=== PATIENT | female | born 1995 | race African-American/Black ===

== ENCOUNTER 2021-01-11 07:23 | Emergency (ER) | payer MEDICAID, SELFPAY ==
[2021-01-11 08:35] LABS: Bilirubin Neg (Negative); Blood, Urine 25 (Negative); Clarity Clear (Clear); Glucose, Urine (Dipstick) Normal (Negative); Ketone, Urine Negative (Negative); Leukocyte 500 (Negative); Nitrite Negative (Negative); Protein, Urine (Dipstick) 15 mg/dl (Neg-Trace); Specific Gravity, Urine 1.015 (1.002-1.036)
[2021-01-11 08:59] LABS: Bacteria/HPF 2+ HPF (None Seen)
[2021-01-11 09:07] LABS: #Eosinphils 0.1 10x3/uL (0.0-0.5); #Monocytes 0.5 10x3/uL (0.0-1.1); %Basophils 0.4 % (0.0-2.0); %Lymphocytes 19.6 % (18.0-47.0); %Monocytes 6.3 % (0.0-10.0); %Neutrophils 72.2 % (40.0-75.0); Hemoglobin 12.6 g/dL (12.0-15.5); Mean Corpuscular HGB CONC 36.1 g/dL (32.0-36.0); Mean Corpuscular Hemoglobin 28.7 pg (27.0-33.0); Mean Corpuscular Volume 79.5 fl (81.6-98.3); Mean Platelet Volume 9.4 fl (7.4-10.4); Platelet Count 381 10x3/uL (150-450); RBC Distribution Width 15.7 % (11.5-14.5); Red Blood Cell (RBC) Count 4.39 10x6/uL (3.90-5.03); White Blood Cell (WBC) Count 8.3 10x3/uL (3.5-10.5)
== END 2021-01-11 09:55 | disposition home or self-care (01) ==
LOC: CSHERS 07:23
DX: O23.41 Unspecified infection of urinary tract in pregnancy, first trimester (principal); O20.9 Hemorrhage in early pregnancy, unspecified; O99.331 Smoking (tobacco) complicating pregnancy, first trimester; F17.210 Nicotine dependence, cigarettes, uncomplicated; Z3A.10 10 weeks gestation of pregnancy
CPT/HCPCS: 76856; 81003; 81015; 84702; 85025; 86900; 86901

== ENCOUNTER 2021-07-09 07:30 | Inpatient (IN) | payer MEDICAID, OTHER ==
[2021-07-16] MEDS ORDERED: hydrALAZINE 20 MG/ML VIAL SLOW IVP PRN ×3 (01:24→11:15)
[2021-07-16] MEDS ORDERED: Famotidine/PF 20 mg/2ml Vial SLOW IVP PRN (01:24)
[2021-07-16] MEDS ORDERED: Acetaminophen 500 MG TAB PO PRN (01:24)
[2021-07-16] MEDS ORDERED: Ondansetron PF 4 MG/2 ML Vial IVP PRN ×2 (01:24→08:57)
[2021-07-16] MEDS ORDERED: Promethazine HCl 25 MG/ML VIAL IM PRN ×2 (01:24→09:01)
[2021-07-16] MEDS ORDERED: Bicitra 30 ML UDCUP PO PRN (01:24)
[2021-07-16] MEDS ORDERED: CEFAZOLIN 2 GM in Premix Bag 1 BAG IVPB SCH (01:30)
[2021-07-16] MEDS: Lactated Ringer's 1,000 ML IV SCH ×2 (06:15→07:30)
[2021-07-16 06:22] VITALS: BMI 37.5
[2021-07-16 06:37] LABS: Hemoglobin 12.2 g/dL (12.0-15.5); Mean Corpuscular HGB CONC 35.5 g/dL (32.0-36.0); Mean Corpuscular Hemoglobin 28.7 pg (27.0-33.0); Mean Corpuscular Volume 80.9 fl (81.6-98.3); Mean Platelet Volume 10.6 fl (7.4-10.4); Platelet Count 340 10x3/uL (150-450); Red Blood Cell (RBC) Count 4.25 10x6/uL (3.90-5.03); White Blood Cell (WBC) Count 10.3 10x3/uL (3.5-10.5)
[2021-07-16] MEDS ORDERED: Morphine PF 10 MG/10 ML VIAL ONE (07:01)
[2021-07-16] MEDS ORDERED: Ondansetron PF 4 MG/2 ML Vial ONE (07:02)
[2021-07-16] MEDS ORDERED: PHENYLEPHRINE-NS 100 MCG/ML 10 ML SYRINGE ONE (07:02)
[2021-07-16] MEDS ORDERED: Dexamethasone 4 mg/ml Vial ONE (07:02)
[2021-07-16] MEDS ORDERED: Metoclopramide HCl 10 MG/2 ML VIAL ONE (07:02)
[2021-07-16] MEDS ORDERED: Phenylephrine 40 MG/NS 250 ML 250 ML ONE (07:02)
[2021-07-16] MEDS ORDERED: Ketorolac Tromethamine 30 MG/ML VIAL ONE (07:02)
[2021-07-16] MEDS ORDERED: Oxytocin 10 UNITS/ML VIAL ONE (07:02)
[2021-07-16 07:13] LABS: Hep B Surf Ag Non-Reactive S/CO (NonReactive)
[2021-07-16 07:14] LABS: Syphilis Antibody Nonreactive (Nonreactive); Syphilis Antibody Index 0.09 S/CO (<1.00 Non-Reactive)
[2021-07-16 07:22] LABS: HBSAg Index 0.21 S/CO (0-0.99)
[2021-07-16] MEDS ORDERED: CEFAZOLIN 1 GM VIAL ONE (07:23)
[2021-07-16] MEDS ORDERED: diphenhydrAMINE 25 MG CAP PO PRN ×2 (08:57→11:15)
[2021-07-16] MEDS ORDERED: Acetaminophen 325 MG TAB PO PRN ×2 (08:57→11:15)
[2021-07-16] MEDS ORDERED: Lanolin Ointment 7 GM TUBE TOP PRN ×2 (08:57→11:15)
[2021-07-16] MEDS ORDERED: Simethicone Chewable 80 MG TAB PO PRN ×2 (08:57→11:15)
[2021-07-16] MEDS ORDERED: Misoprostol 200 MCG TAB PR PRN ×2 (08:57→11:15)
[2021-07-16] MEDS ORDERED: Boostrix 0.5 ML (Tdap) VIAL IM ONE (08:57)
[2021-07-16] MEDS ORDERED: NS w/ Oxytocin 30 units 500 ML IV SCH ×2 (09:00→11:15)
[2021-07-16] MEDS ORDERED: Ferrous Sulfate 325 MG TAB PO SCH (09:00)
[2021-07-16] MEDS ORDERED: Prenatal Vitamin 1 TAB PO SCH (09:00)
[2021-07-16] MEDS ORDERED: Ondansetron HCl/PF 4 MG/2 ML Vial IVP PRN (09:01)
[2021-07-16] MEDS ORDERED: Meperidine HCl/PF 25 MG/ML VIAL SLOW IVP PRN (09:01)
[2021-07-16] MEDS ORDERED: Naloxone HCl 0.4 mg/ml Vial IVP PRN ×2 (09:01)
[2021-07-16] MEDS ORDERED: Naloxone HCl 0.4 mg/ml Vial IV PRN (09:01)
[2021-07-16] MEDS ORDERED: Fentanyl 100 MCG/2 ML VIAL SLOW IVP PRN (09:01)
[2021-07-16] MEDS ORDERED: Hydrocerin (Eucerin) Cream 120 gm Jar TOP PRN (09:01)
[2021-07-16] MEDS ORDERED: diphenhydrAMINE 50 MG/ML VIAL IVP PRN (09:01)
[2021-07-16] MEDS ORDERED: Promethazine HCl 25 MG SUPP PR PRN (09:01)
[2021-07-16] MEDS ORDERED: Communication Order-Pharmacy FS SCH (09:15)
[2021-07-16] MEDS: Ondansetron PF 4 MG/2 ML Vial IVP PRN ×2 (09:46→17:19)
[2021-07-16 10:45] LABS: HIV (1/2) Antibody/Antigen Non-Reactive (NonReactive); HIV 1/2 INDEX 0.08 S/CO (<1.00)
[2021-07-16] MEDS ORDERED: NS w/ Oxytocin 30 units 500 ML ONE (11:23)
[2021-07-16] MEDS ORDERED: Ketorolac Tromethamine 30 MG/ML VIAL IVP PRN (14:00)
[2021-07-16] MEDS ORDERED: Ibuprofen 800 MG TAB PO SCH (14:00)
[2021-07-16] MEDS: Ferrous Sulfate 325 MG TAB PO SCH (20:13)
[2021-07-16] MEDS: Docusate Calcium (SURFAK) 240 MG CAP PO SCH (20:13)
[2021-07-17] MEDS: Ferrous Sulfate 325 MG TAB PO SCH ×2 (07:13→22:02)
[2021-07-17] MEDS ORDERED: Ibuprofen 800 MG TAB PO SCH ×3 (09:00→22:00)
[2021-07-17] MEDS ORDERED: HYDROcodone/Acetaminophen 5/325 mg Tablet PO PRN (09:03)
[2021-07-17] MEDS: Docusate Calcium (SURFAK) 240 MG CAP PO SCH ×2 (09:08→22:01)
[2021-07-17] MEDS: Prenatal Vitamin 1 TAB PO SCH (09:08)
[2021-07-17] MEDS: HYDROcodone/Acetaminophen 5/325 mg Tablet PO PRN ×3 (09:17→23:46)
[2021-07-17] MEDS: Ibuprofen 800 MG TAB PO SCH ×2 (15:04→22:01)
[2021-07-18] MEDS: Ibuprofen 800 MG TAB PO SCH ×2 (05:04→13:21)
[2021-07-18 07:50] VITALS: BP 135/88; TEMP 98
[2021-07-18] MEDS: Ferrous Sulfate 325 MG TAB PO SCH (08:09)
[2021-07-18] MEDS: Docusate Calcium (SURFAK) 240 MG CAP PO SCH (08:09)
[2021-07-18] MEDS: Prenatal Vitamin 1 TAB PO SCH (08:09)
[2021-07-18] MEDS: HYDROcodone/Acetaminophen 5/325 mg Tablet PO PRN ×2 (08:12→13:21)
[2021-07-18] MEDS ORDERED: Polyethylene Glycol 3350 17 GM Packet PO SCH (09:00)
[2021-07-21] MEDS ORDERED: Ibuprofen 800 MG TAB PO SCH (22:00)
== END 2021-07-18 17:54 | disposition home or self-care (01) | DRG 787 ==
LOC: UNDOADMIN 07-16 05:35 → CSHLD 07-16 05:35 → CSHPP 07-16 11:45
PROVIDERS: ADMIT Student in an Organized Health Care Education/Training Program; ATTEND Student in an Organized Health Care Education/Training Program
PROC: 10D00Z1 Extraction of Products of Conception, Low, Open Approach (ICD-10-PCS; principal; 2021-07-16)
DX: O34.211 Maternal care for low transverse scar from previous cesarean delivery (principal); O10.92 Unspecified pre-existing hypertension complicating childbirth; O99.12 Other diseases of the blood and blood-forming organs and certain disorders involving the immune mechanism complicating childbirth; Z3A.38 38 weeks gestation of pregnancy; Z37.0 Single live birth; O36.5930 Maternal care for other known or suspected poor fetal growth, third trimester, not applicable or unspecified; O99.344 Other mental disorders complicating childbirth; F32.9 Major depressive disorder, single episode, unspecified; F41.9 Anxiety disorder, unspecified; D58.2 Other hemoglobinopathies; O99.214 Obesity complicating childbirth; O99.824 Streptococcus B carrier state complicating childbirth
CPT/HCPCS: 36415; 51702; 85027; 86780; 86850; 86900; 86901; 87340; 87389; J1100; J1200; J1885; J2274; J2405; J2590; J2765; J7120; S0028

== ENCOUNTER 2021-07-12 11:38 | Day surgery (SDC) | payer MEDICAID ==
[2021-07-12 13:20] LABS: Creatinine, Urine 246.01 mg/dL (47-110)
[2021-07-12] MEDS ORDERED: Fioricet 325/50/40 mg Tablet PO SCH (14:00)
[2021-07-12] MEDS ORDERED: Acetaminophen 325 MG TAB PO SCH (16:00)
[2021-07-13 08:17] LABS: SARS-CoV-2 PCR by NAA Not Detected (NotDetected)
== END 2021-07-12 17:04 | disposition home or self-care (01) ==
LOC: CSHLD/OP 11:38
PROVIDERS: ATTEND Obstetrics & Gynecology
DX: O10.013 Pre-existing essential hypertension complicating pregnancy, third trimester (principal); O99.213 Obesity complicating pregnancy, third trimester; O99.343 Other mental disorders complicating pregnancy, third trimester; O99.820 Streptococcus B carrier state complicating pregnancy; O34.219 Maternal care for unspecified type scar from previous cesarean delivery; F41.1 Generalized anxiety disorder; F32.9 Major depressive disorder, single episode, unspecified; N85.8 Other specified noninflammatory disorders of uterus; Z3A.37 37 weeks gestation of pregnancy; Z20.822 Contact with and (suspected) exposure to COVID-19; Z88.5 Allergy status to narcotic agent; Z79.899 Other long term (current) drug therapy
CPT/HCPCS: 82570; 84156; 99283; U0003; U0005

== ENCOUNTER 2022-09-30 11:35 | Outpatient (CLI) | payer OTHER | END 2022-09-30 11:36 | disposition home or self-care (01) | LOC: CSHULT 11:35 | PROVIDERS: ATTEND Family Medicine | DX: Z34.82 Encounter for supervision of other normal pregnancy, second trimester (principal); Z3A.22 22 weeks gestation of pregnancy | CPT/HCPCS: 76805 ==

== ENCOUNTER 2022-12-26 22:23 | Day surgery (SDC) | payer OTHER ==
[2022-12-26 22:31] VITALS: BMI 37.3
[2022-12-26] MEDS ORDERED: hydrALAZINE 20 MG/ML VIAL SLOW IVP PRN (22:55)
[2022-12-26] MEDS ORDERED: Acetaminophen 500 MG TAB PO SCH (23:00)
[2022-12-26] MEDS ORDERED: Cyclobenzaprine 10 MG TAB PO SCH (23:00)
== END 2022-12-27 00:20 | disposition home or self-care (01) ==
LOC: CSHERS 22:23 → CSHLD/OP 12-27 00:20
PROVIDERS: ATTEND Family Medicine
DX: O26.893 Other specified pregnancy related conditions, third trimester (principal); R10.30 Lower abdominal pain, unspecified; M54.9 Dorsalgia, unspecified; O99.323 Drug use complicating pregnancy, third trimester; F12.90 Cannabis use, unspecified, uncomplicated; Z87.59 Personal history of other complications of pregnancy, childbirth and the puerperium; Z79.899 Other long term (current) drug therapy; Z88.5 Allergy status to narcotic agent; Z3A.36 36 weeks gestation of pregnancy
CPT/HCPCS: 99284

== ENCOUNTER 2023-01-16 04:42 | Inpatient (IN) | payer OTHER ==
[2023-01-16] MEDS ORDERED: hydrALAZINE 20 MG/ML VIAL SLOW IVP PRN ×2 (05:01→12:48)
[2023-01-16] MEDS ORDERED: NS w/ Oxytocin 30 units 500 ML IV SCH (05:01)
[2023-01-16] MEDS ORDERED: CEFAZOLIN 2 GM in Sodium Chloride 0.9% 100 ML IVPB SCH (05:01)
[2023-01-16] MEDS ORDERED: Ondansetron PF 4 MG/2 ML Vial IVP PRN ×3 (05:01→12:48)
[2023-01-16] MEDS ORDERED: Famotidine/PF 20 mg/2ml Vial SLOW IVP PRN (05:01)
[2023-01-16] MEDS ORDERED: Carboprost 250 MCG/ML AMP IM PRN (05:01)
[2023-01-16] MEDS ORDERED: Promethazine HCl 25 MG/ML VIAL IM PRN ×3 (05:01→12:48)
[2023-01-16] MEDS ORDERED: Methylergonovine 0.2 MG/ML VIAL IM PRN (05:01)
[2023-01-16] MEDS ORDERED: Diphenoxylate HCl/Atropine Tablet PO PRN (05:01)
[2023-01-16] MEDS ORDERED: Misoprostol 200 MCG TAB PR PRN (05:01)
[2023-01-16] MEDS ORDERED: Bicitra 30 ML UDCUP PO PRN (05:01)
[2023-01-16] MEDS ORDERED: Tranexamic Acid 1,000 MG/10 ML VIAL IVP PRN (05:01)
[2023-01-16 05:29] VITALS: BMI 38.2
[2023-01-16 06:10] LABS: Hemoglobin 11.8 g/dL (12.0-15.5); Mean Corpuscular HGB CONC 35.8 g/dL (32.0-36.0); Mean Corpuscular Hemoglobin 28.4 pg (27.0-33.0); Mean Corpuscular Volume 79.5 fl (81.6-98.3); Platelet Count 335 10x3/uL (150-450); RBC Distribution Width 14.5 % (11.5-14.5); Red Blood Cell (RBC) Count 4.15 10x6/uL (3.90-5.03); White Blood Cell (WBC) Count 9.1 10x3/uL (3.5-10.5)
[2023-01-16] MEDS: Lactated Ringer's 1,000 ML IV SCH ×2 (06:30→11:59)
[2023-01-16 06:37] LABS: HBSAg Index 0.15 S/CO (0-0.99); Hep B Surf Ag - L&D Non-Reactive S/CO (NonReactive)
[2023-01-16 06:47] LABS: Syphilis Antibody Nonreactive (Nonreactive); Syphilis Antibody Index 0.06 S/CO (<1.00 Non-Reactive)
[2023-01-16] MEDS ORDERED: Morphine PF 10 MG/10 ML VIAL ONE (06:55)
[2023-01-16] MEDS ORDERED: Ondansetron PF 4 MG/2 ML Vial ONE (06:56)
[2023-01-16] MEDS ORDERED: Oxytocin 10 UNITS/ML VIAL ONE (06:56)
[2023-01-16] MEDS ORDERED: PHENYLEPHRINE-NS 100 MCG/ML 10 ML SYRINGE ONE (06:56)
[2023-01-16] MEDS ORDERED: Phenylephrine 40 MG/NS 250 ML 250 ML ONE (06:56)
[2023-01-16] MEDS ORDERED: Dexamethasone 4 mg/ml Vial ONE (06:56)
[2023-01-16] MEDS ORDERED: Meperidine HCl/PF 25 MG/ML VIAL SLOW IVP PRN (07:28)
[2023-01-16] MEDS ORDERED: Naloxone HCl 0.4 mg/ml Vial IVP PRN ×2 (07:28)
[2023-01-16] MEDS ORDERED: L&D-Morphine 4 MG/ML VIAL SLOW IVP PRN (07:28)
[2023-01-16] MEDS ORDERED: Fentanyl 100 MCG/2 ML VIAL SLOW IVP PRN (07:28)
[2023-01-16] MEDS ORDERED: Promethazine HCl 25 MG SUPP PR PRN (07:28)
[2023-01-16] MEDS ORDERED: Ondansetron HCl/PF 4 MG/2 ML Vial IVP PRN (07:28)
[2023-01-16] MEDS ORDERED: diphenhydrAMINE 50 MG/ML VIAL IVP PRN (07:28)
[2023-01-16] MEDS ORDERED: Naloxone HCl 0.4 mg/ml Vial IV PRN (07:28)
[2023-01-16] MEDS ORDERED: Ketorolac Tromethamine 30 MG/ML VIAL IVP PRN (07:28)
[2023-01-16] MEDS ORDERED: Moisturizing Cream (Eucerin) 113 GM JAR TOP PRN (07:28)
[2023-01-16] MEDS ORDERED: Ketorolac Tromethamine 30 MG/ML VIAL IVP SCH (07:30)
[2023-01-16] MEDS ORDERED: Communication Order-Pharmacy FS SCH (07:30)
[2023-01-16] MEDS ORDERED: Bisacodyl 10 MG SUPP PR PRN (12:48)
[2023-01-16] MEDS ORDERED: Boostrix 0.5 ML (Tdap) VIAL (>/=7 yrs of age) IM ONE (12:48)
[2023-01-16] MEDS ORDERED: diphenhydrAMINE 25 MG CAP PO PRN (12:48)
[2023-01-16] MEDS ORDERED: Lanolin Ointment 7 GM TUBE TOP PRN (12:48)
[2023-01-16] MEDS ORDERED: Docusate 100 MG CAP PO SCH (13:00)
[2023-01-16] MEDS ORDERED: Ferrous Sulfate 325 MG TAB PO SCH (13:00)
[2023-01-16] MEDS ORDERED: Prenatal Vitamin 1 TAB PO SCH (13:00)
[2023-01-16] MEDS: Ketorolac Tromethamine 30 MG/ML VIAL IVP SCH ×2 (15:09→20:52)
[2023-01-16] MEDS ORDERED: HYDROcodone/Acetaminophen 5/325 mg Tablet PO PRN (19:30)
[2023-01-16] MEDS ORDERED: Meperidine HCl/PF 25 MG/ML VIAL IM PRN (19:30)
[2023-01-16] MEDS: Docusate 100 MG CAP PO SCH (20:54)
[2023-01-16] MEDS: Ferrous Sulfate 325 MG TAB PO SCH (23:41)
[2023-01-17] MEDS: HYDROcodone/Acetaminophen 5/325 mg Tablet PO PRN ×3 (02:44→21:05)
[2023-01-17] MEDS: Simethicone Chewable 80 MG TAB PO PRN ×3 (02:45→22:09)
[2023-01-17] MEDS: Ketorolac Tromethamine 30 MG/ML VIAL IVP SCH ×2 (02:45→08:12)
[2023-01-17 03:50] LABS: Hemoglobin 9.8 g/dL (12.0-15.5); Mean Corpuscular HGB CONC 35.4 g/dL (32.0-36.0); Mean Corpuscular Hemoglobin 28.6 pg (27.0-33.0); Mean Corpuscular Volume 80.8 fl (81.6-98.3); Mean Platelet Volume 10.8 fl (7.4-10.4); Platelet Count 294 10x3/uL (150-450); RBC Distribution Width 14.7 % (11.5-14.5); Red Blood Cell (RBC) Count 3.43 10x6/uL (3.90-5.03); White Blood Cell (WBC) Count 12.9 10x3/uL (3.5-10.5)
[2023-01-17] MEDS: Docusate 100 MG CAP PO SCH ×2 (08:13→21:05)
[2023-01-17] MEDS: Ferrous Sulfate 325 MG TAB PO SCH ×2 (08:13→22:08)
[2023-01-17] MEDS: Prenatal Vitamin 1 TAB PO SCH (08:13)
[2023-01-17] MEDS: Ibuprofen 800 MG TAB PO SCH ×2 (14:04→22:08)
[2023-01-18] MEDS: HYDROcodone/Acetaminophen 5/325 mg Tablet PO PRN ×4 (01:55→16:50)
[2023-01-18] MEDS: Ibuprofen 800 MG TAB PO SCH ×2 (05:26→14:11)
[2023-01-18 07:48] VITALS: BP 120/69; TEMP 97.9
[2023-01-18] MEDS: Prenatal Vitamin 1 TAB PO SCH (08:50)
[2023-01-18] MEDS: Docusate 100 MG CAP PO SCH (08:50)
[2023-01-18] MEDS: Ferrous Sulfate 325 MG TAB PO SCH (08:50)
== END 2023-01-18 17:00 | disposition home or self-care (01) | DRG 788 ==
LOC: CSHLD 04:42 → CSHPP 12:47
PROVIDERS: ADMIT Family Medicine; ATTEND Family Medicine
PROC: 10D00Z1 Extraction of Products of Conception, Low, Open Approach (ICD-10-PCS; principal; 2023-01-16)
DX: O34.211 Maternal care for low transverse scar from previous cesarean delivery (principal); Z3A.39 39 weeks gestation of pregnancy; Z37.0 Single live birth; Z79.899 Other long term (current) drug therapy; Z88.8 Allergy status to other drugs, medicaments and biological substances; O99.892 Other specified diseases and conditions complicating childbirth; N73.6 Female pelvic peritoneal adhesions (postinfective); O77.0 Labor and delivery complicated by meconium in amniotic fluid; O32.8XX0 Maternal care for other malpresentation of fetus, not applicable or unspecified
CPT/HCPCS: 85027; 86780; 86850; 86870; 86880; 86900; 86901; 86905; 86921; 87340; J1100; J1885; J2274; J2405; J2550; J2590; J3490; J7120; S0028